=== PATIENT | male | born 1995 | race Hispanic/Latino ===

== ENCOUNTER 2020-02-15 00:43 | Emergency (ER) | payer BC, SELFPAY ==
--- NOTE | ~2020-02-15 | XR_ITS ---
EXAMINATION: XR hand LT min 3V DATE: 02/15/2020 01:08 INDICATION: Left hand injury with pain at the third and fourth metacarpals TECHNIQUE: Posteroanterior, oblique and lateral views of the left hand were obtained. COMPARISON: None. FINDINGS: Alignment is normal. No fracture. Joint spaces are normal. Soft tissues are unremarkable. IMPRESSION: 1. Negative left hand radiographs. Reviewed, dictated and finalized at location A.
[2020-02-15 00:48] VITALS: BP 126/71; PULSE 116; RESP 18; TEMP 36.8; O2SAT 98
--- NOTE | 2020-02-15 01:14 | ED.UPPEXIN ---
HPI - Extremity Injury (Upper) General Chief Complaint: Extremity Injury, Upper Stated Complaint: hand injury Time Seen by Provider: 02/15/20 01:06 Source: patient and RN notes reviewed Mode of arrival: ambulatory Limitations: no limitations History of Present Illness HPI narrative: A 24 y/o male presents to the ED with severe, 6/10, lt hand pain beginning roughly 40 minutes ago after he hit a wall. He states that he did this on accident and denies any radiation of the pain. He also denies any wound, numbness, or tingling. MD complaint: injury to: left and hand Onset (ago): minute(s) (40) Other Extremity Injury: Left: hand Other injuries: none Severity: severe Severity scale (1-10): 6 Context: direct blow (punched a wall) Associated symptoms: denies other symptoms Related Data Home Medications Medication Instructions Recorded Confirmed No Home Medications 02/15/20 02/15/20 Allergies Allergy/AdvReac Type Severity Reaction Status Date / Time No Known Allergies Allergy Verified 01/11/19 14:42 Review of Systems Review of Systems: All systems reviewed & are unremarkable except as noted in HPI and below Musculoskeletal: Musculoskeletal: Reports other (severe lt hand pain) Integumentary/Breasts: Skin/Breast: Denies wounds Neurologic: Denies numbness and Denies tingling PMFSH Past Medical History Medical History Healthy adult male Surgical History Surgical History No history of previous surgery Social History Social History Smoking status: Never smoker Alcohol intake: current Substance use: never Exam Const: General: healthy appearing and no acute distress Nutritional Appearance: well nourished HENMT: Mouth: Yes lip normal and Yes moist mucous membranes Eyes: Conjunctivae: conjunctivae normal Pupils: Equal, round and reactive pupils present Resp: Effort & Inspection: normal respiratory effort Auscultation: clear to auscultation bilaterally Cardio: Rate: regular rate Rhythm: regular rhythm Heart sounds: no murmurs GI: GI Palp: Yes Soft to palpation and No Tenderness to palpation present (GI) Auscultation: normal bowel sounds Back/Spine/Pelvis: Other: Full ROM. Skin: General skin exam: normal color, dry skin and other (warm) Neuro: General: patient oriented x3 (alert) Speech: normal speech Extrem: General: full ROM Left upper extremity: hand tenderness of the 2nd digit at the MCP joint and of the 3rd digit at the MCP joint and swelling of the 2nd digit at the MCP joint and of the 3rd digit at the MCP joint Psych: Mental Status: mental status grossly normal Affect: normal affect Course Vital Signs Vital signs: Vital Signs Temperature 36.8 C 02/15/20 00:48 Pulse Rate 116 H 02/15/20 00:48 Respiratory Rate 18 02/15/20 00:48 Blood Pressure 126/71 02/15/20 00:48 Pulse Oximetry 98 02/15/20 00:48 Temperature 36.8 C 02/15/20 00:48 Pulse Rate 116 H 02/15/20 00:48 Respiratory Rate 18 02/15/20 00:48 Blood Pressure 126/71 02/15/20 00:48 Pulse Oximetry 98 02/15/20 00:48 MDM - Extremity Injury (Upper) MDM Narrative Medical decision making narrative: Fracture, contusion Imaging Data Attestation: I personally reviewed and interpreted this imaging study as follows: My impression: No acute injury Discharge Plan Discharge Clinical Impression: Contusion of hand Qualifiers: Encounter type: initial encounter Laterality: left Qualified Code(s): S60.222A - Contusion of left hand, initial encounter Patient Disposition: Home, Self-Care Condition: Stable Instructions: Contusion in Adults (ED) Prescriptions: No Action No Home Medications RF: 0 Follow-up/Referrals: UNKNOWN,DOCTOR [Primary Care Provider] - Discharge Date/Time: 02/15/20 01:44
[2020-02-15] MEDS: IBUPROFEN 600 MG TABLET PO (01:41)
[2020-02-15] MEDS: ACETAMINOPHEN 500 MG TABLET 1000 MG PO (01:41)
== END 2020-02-15 01:44 | disposition home or self-care (01) ==
PROVIDERS: Emergency Provider Emergency Medicine
DX: S60.222A Contusion of left hand, initial encounter (principal); W22.09XA Striking against other stationary object, initial encounter
CPT/HCPCS: 73130; 99283; A9270

== ENCOUNTER 2025-01-08 18:49 | Emergency (ER) | payer BC, SELFPAY ==
[2025-01-08 19:14] VITALS: BP 128/74; PULSE 83; RESP 16; TEMP 36; O2SAT 99
[2025-01-08 19:36] LABS: EDSTREPNEGPOS1 Negative (Negative)
--- NOTE | 2025-01-08 19:48 | ED_ITS ---
HPI - URI/Sore Throat General Chief Complaint: Upper Respiratory Infection Stated Complaint: SORE THROAT/SINUS/LOSING VOICE/VICENTE/VOMITING Time Seen by Provider: 01/08/25 19:48 Source: patient Mode of arrival: ambulatory Limitations: no limitations History of Present Illness HPI Narrative: 29-year-old male presents with complaint of sore throat, fatigue, nausea vomiting, headache for 5 days. Vomited once today. Not nauseated at this time. Reports that he took ibuprofen around 2:00 p.m. to treat headache. Did not help so he took Tylenol. Continues to have headache. No vision changes. Patient states voice hoarse today. Called in to work today. All systems reviewed and negative except as noted above. Related Data Allergies Allergy/AdvReac Type Severity Reaction Status Date / Time No Known Allergies Allergy Verified 01/08/25 19:40 Review of Systems Review of Systems: CONSTITUTIONAL: Denies fever, chills, or sweats. Reports fatigue. EYES: Denies visual changes, redness, or discharge. ENT: Denies rhinorrhea, congestion. Reports sore throat. Denies otalgia. CARDIOVASCULAR: Denies chest pain, palpitations, or edema. RESPIRATORY: Denies cough or dyspnea. GASTROINTESTINAL: Denies abdominal pain. Reports nausea, vomiting. Denies diarrhea. GENITOURINARY: Denies dysuria or hematuria. SKIN: Denies rash or itching. MUSCULOSKELETAL: Denies back pain, joint pain, or myalgia. NEUROLOGIC: Denies headache, numbness, or weakness. PSYCHIATRIC: Denies anxiety or depression. All other systems reviewed are negative, except as documented in HPI. [facility] Past Medical History Medical History (Updated 01/08/25 @ 20:11 by Aaliyah Lopez NP) Healthy adult male Surgical History Surgical History No history of previous surgery Social History Social History Smoking status: Never smoker Alcohol intake: current Alcohol use details: Social use only Substance use: never Comments At time of signature, agree with nursing past medical, surgical, social and family history. There is no relevant family history pertinent to the presenting complaint. Exam Narrative: GENERAL: This is a well-nourished, well-developed patient, ill-appearing but in no acute distress HEAD: normocephalic, atraumatic. EYES: PERRL. Sclera clear/white. Vision is grossly intact. EARS: External ears normal, auditory canals clear and without drainage, TMs normal without perforation. Hearing grossly intact. NOSE: External nose normal with no obvious nasal discharge, nares without redness, no rhinorrhea. THROAT: Mucous membranes moist, erythematous with swelling. No exudates. Tonsils 1+ bilaterally. NECK: Neck supple, non-tender without lymphadenopathy, masses or thyromegaly. CARDIOVASCULAR: Regular rate and rhythm without murmurs, gallops, or rubs. RESPIRATORY: Clear to auscultation. Breath sounds equal bilaterally. No wheezes, rales, or rhonchi. GASTROINTESTINAL: Abdomen soft, non-tender, nondistended. Bowel sounds are active. No hepato-splenomegaly, or palpable masses. No guarding. SKIN: warm, Dry, intact with no suspicious lesions or rash, good texture and tur gor. NEURO: awake, alert, and oriented to person, place and time. There were no obvious focal neurologic abnormalities. EXTREMITIES: No joint tenderness, effusion, or edema noted. Course Course Level of Care: [facility] Visit Vital Signs Vital signs: Vital Signs Temperature 36.0 C L 01/08/25 19:14 Pulse Rate 83 01/08/25 19:14 Respiratory Rate 16 01/08/25 19:14 Blood Pressure 128/74 01/08/25 19:14 Pulse Oximetry 99 01/08/25 19:14 Temperature 36.0 C L 01/08/25 19:14 Pulse Rate 83 01/08/25 19:14 Respiratory Rate 16 01/08/25 19:14 Blood Pressure 128/74 01/08/25 19:14 Pulse Oximetry 99 01/08/25 19:14 Reviewed MDM - URI/Sore Throat MDM Narrative Medical decision making narrative: Negative COVID, influenza and strep test. Strep culture ordered. Will treat patient with antibiotic due to patient's symptoms and exam and needs patient is alert, nontoxic. Given Toradol at [facility] to treat headache. Please be advised this is a medical document. It is intended for [id number] communication. It is written in medical language and may contain unfamiliar abbreviations or verbiage. Medical documents are intended to carry relevant information, facts as evident, and the clinical opinion of the practitioner at the time of the encounter. This report may have been done utilizing a voice recognition system. Attempts have been made to correct errors. However, there may be uncorrected grammatical, spelling, and recognition errors present. The file time of this note does not necessarily represent the time of service. Differential Diagnosis Differential diagnosis: Likely upper respiratory infection, sinusitis, viral infection, influenza and pharyngitis Lab Data Labs: Lab Results 01/08/25 01/08/25 Range/Units 19:35 20:06 POC Influenza A Ag Negative (Negative) POC Influenza B Ag Negative (Negative) POC SARS CoV-2 Ag Negative (Negative) POC Grp A Strep Screen Negative (Negative) Discharge Plan Discharge Clinical Impression: Acute pharyngitis Patient Disposition: Home, Self-Care Condition: Stable Instructions: Pharyngitis (ED) Additional Instructions: Your COVID, influenza and strep test were negative today. Due to her symptoms and exam findings I am prescribing an antibiotic today. Take antibiotic as prescribed until gone. Take ibuprofen or Tylenol every 6-8 hours as needed for pain and fever. Take Zofran as needed for nausea and vomiting. Drink at least 64 oz of water a day. Follow-up with your primary care physician if symptoms are not improving. Patient Language: [place] Prescriptions: New ondansetron 4 mg tablet,disintegrating 4 mg PO Q8H PRN (Reason: nausea and vomiting) Qty: 12 0RF amoxicillin 500 mg capsule 500 mg PO Q12H 10 Days Qty: 20 0RF Follow-up/Referrals: PHYSICIAN,RISK OFFICER [Primary Care Provider] - Stand Alone Forms: Work/School Release IP Time of Disposition: 20:12
[2025-01-08 20:08] LABS: EDCOVIDSCREEN Negative (Negative); EDINFLUASCREEN Negative (Negative); EDINFLUBSCREEN Negative (Negative)
[2025-01-08] MEDS: ONDANSETRON HCL ODT 4 MG TABLET SUBLINGUAL (20:11)
[2025-01-08] MEDS: KETOROLAC (*BKC) 60 MG/2 ML VIAL IM (20:11)
== END 2025-01-08 20:16 | disposition home or self-care (01) ==
PROVIDERS: Emergency Provider Nurse Practitioner Family
DX: J02.9 Acute pharyngitis, unspecified (principal); Z20.822 Contact with and (suspected) exposure to COVID-19
CPT/HCPCS: 87081; 87426; 87804; 87880; 96372; 99213; A9270; G0463; J1885